=== PATIENT | female | born 1980 | race Caucasian/White ===

== ENCOUNTER 2020-11-29 11:06 | Inpatient (IN) | payer BC ==
[~2020-11-29] VITALS: Ht 157.5 cm; Wt 56.7 kg
--- NOTE | 2020-11-29 11:15 | NUR ---
at bedside for MSE.
[2020-11-29] MEDS ORDERED: MORPHINE SULFATE 4 MG/1 ML DISP.SYRIN IV ONE ×2 (11:30→13:45)
[2020-11-29] MEDS ORDERED: PANTOPRAZOLE SODIUM 40 MG VIAL IV ONE (11:30)
[2020-11-29] MEDS ORDERED: ONDANSETRON 4 MG/2 ML VIAL IV ONE (11:30)
[2020-11-29 11:32] LABS: HEMATOCRIT 37.3 % (31.2-41.9); PLATELET COUNT (AUTO) 225 K/uL (179-408)
[2020-11-29 11:34] LABS: *BILIRUBIN,URIN NEGATIVE (NEGATIVE); *CLARITY,URINE CLEAR (CLEAR); *COLOR,URINE YELLOW (YELLOW); *KETONES,URINE 1+ (NEGATIVE); *URINE HCG, QUAL NEG (NEGATIVE); *UROBILINOGEN,URINE 0.2 E.U./dl (NORMAL); LEUKOCYTE ESTERASE ,URINE NEGATIVE (NEGATIVE); NITRITE, URINE NEGATIVE (NEGATIVE); UGLUCOSE NEGATIVE (NEGATIVE)
[2020-11-29 11:35] LABS: *BLOOD, URINE TRACE (NEGATIVE)
[2020-11-29 11:38] LABS: CREATININE 0.7 mg/dL (0.6-1.3)
[2020-11-29] MEDS ORDERED: PANTOPRAZOLE SODIUM 40 MG VIAL ONE (11:43)
[2020-11-29] MEDS ORDERED: ONDANSETRON 4 MG/2 ML VIAL ONE ×3 (11:43→21:42)
[2020-11-29] MEDS ORDERED: MORPHINE SULFATE 4 MG/1 ML DISP.SYRIN ONE ×3 (11:43→14:18)
[2020-11-29 11:44] LABS: BILIRUBIN,DIRECT 0.1 mg/dL (0.0-0.2); BILIRUBIN,TOTAL 0.5 mg/dL (0.2-1.0); TOTAL PROTEIN, SERUM 6.9 g/dL (6.4-8.2)
--- NOTE | 2020-11-29 12:46 | NUR ---
Pt signed consent for IV contrasted CT scan, placed in the chart.
[2020-11-29] MEDS ORDERED: IV NORMAL SALINE 250 ML IV ONE (12:52)
[2020-11-29] MEDS ORDERED: IOHEXOL 300MG/ML 100 ML INFUS..BTL ONE (12:52)
[2020-11-29] MEDS ORDERED: SWABABLE VALVE TRANSFER SET EA MC ONE (12:52)
--- NOTE | 2020-11-29 13:01 | NUR ---
Pt out of Er for CT scan.
--- NOTE | 2020-11-29 13:31 | NUR ---
Pt back from Ct, IV inflitarated in CT, HL removed and warm pack applied.
[2020-11-29] MEDS ORDERED: CEFTRIAXONE 1 G in IV DEXTROSE 5% 50 ML IV ONE (13:45)
[2020-11-29] MEDS ORDERED: METRONIDAZOLE 500 MG/NS 100ML 100 ML IV ONE ×2 (13:45→13:59)
--- NOTE | 2020-11-29 13:53 | NUR ---
ER spoke to Dr Solomon(surgeon). Pt placed on NPO, pt stated she has not eaten anything since last night.
[2020-11-29] MEDS ORDERED: CEFTRIAXONE /D5W 50ML IVPB **ER PYXIS IV ONE (13:59)
[2020-11-29 14:27] LABS: BACTERIA,URINE NONE SEEN /HPF (NONE SEEN); RBC,URINE NONE SEEN /HPF (0-3); WBC,URINE NONE SEEN /HPF (0-3)
[2020-11-29 14:28] LABS: SQUAMOUS EPITHELIAL CELL,UR FEW /HPF (NONE SEEN)
[2020-11-29] MEDS ORDERED: IV D5/ 0.9% NACL 1,000 ML IV PRN (15:15)
[2020-11-29] MEDS ORDERED: ACETAMINOPHEN 650 MG SUPP.RECT RC PRN (15:15)
[2020-11-29] MEDS ORDERED: ONDANSETRON 4 MG/2 ML VIAL IV PRN (15:15)
[2020-11-29] MEDS ORDERED: MORPHINE SULFATE 4 MG/1 ML DISP.SYRIN IV PRN (15:15)
[2020-11-29 16:18] VITALS: BP 110/62
--- NOTE | 2020-11-29 16:22 | NUR ---
40 year old female admitted to room 330 for abdominal pain .pt is axox4 orient the pt to room.call light with in reach md notified the admission orders
[2020-11-29] MEDS ORDERED: PIPERACILLIN SODIUM/TAZOBACTAM 3.375 G in IV DEXTROSE 5% 50 ML IV ONE (17:00)
[2020-11-29] MEDS ORDERED: BUPIVACAINE/EPI PF 0.25% 30 ML VIAL ONE ×2 (18:22→20:43)
--- NOTE | 2020-11-29 18:40 | NUR ---
pt went to or via bed for surgery
[2020-11-29] MEDS ORDERED: ROCURONIUM BROMIDE 50 MG/5 ML VIAL ONE (18:55)
[2020-11-29] MEDS ORDERED: FENTANYL CITRATE 100 MCG/2 ML AMPUL ONE (18:55)
[2020-11-29] MEDS ORDERED: SCOPOLAMINE PATCH 1 MG/72 HRS PATCH TD ONE (19:30)
[2020-11-29 20:30] VITALS: BP 106/61
--- NOTE | 2020-11-29 21:34 | NUR ---
pt received from recovery room via bed in stable condition.vs are stable call light with in reach
[2020-11-29] MEDS ORDERED: GLYCOPYRROLATE 0.2 MG/ML VIAL ONE (21:42)
[2020-11-29] MEDS ORDERED: LIDOCAINE-MPF 2% 5 ML VIAL ONE (21:42)
[2020-11-29] MEDS ORDERED: PROPOFOL 200 MG/20 ML BOTTLE ONE (21:42)
[2020-11-29] MEDS ORDERED: SUCCINYLCHOLINE CHLORIDE 200 MG/10 ML VIAL ONE (21:42)
[2020-11-29] MEDS ORDERED: NEOSTIGMINE METHYLSULFATE 10 MG/10 ML VIAL ONE (21:42)
[2020-11-29] MEDS ORDERED: ESMOLOL HCL 100 MG/10 ML VIAL IV ONE (21:42)
[2020-11-29] MEDS ORDERED: DEXAMETHASONE SOD PHOSPHATE 4 MG INJ ONE (21:42)
[2020-11-29] MEDS ORDERED: KETOROLAC TROMETHAMINE 30 MG INJ ONE (21:42)
[2020-11-30] MEDS ORDERED: PIPERACILLIN SODIUM/TAZOBACTAM 3.375 G in IV DEXTROSE 5% 100 ML IV SCH (01:00)
[2020-11-30 04:25] VITALS: BP 98/52
[2020-11-30 06:36] LABS: HEMATOCRIT 33.4 % (31.2-41.9); MEAN CORPUSCULAR VOLUME 89.6 fL (75.5-95.3); PLATELET COUNT (AUTO) 217 K/uL (179-408)
[2020-11-30 06:59] LABS: BILIRUBIN,TOTAL 0.5 mg/dL (0.2-1.0); CREATININE 0.8 mg/dL (0.6-1.3); MAGNESIUM 1.9 mg/dL (1.8-2.4); PHOSPHOROUS 2.6 mg/dL (2.5-4.9); POTASSIUM 4.1 mmol/L (3.5-5.1); TOTAL PROTEIN, SERUM 6.1 g/dL (6.4-8.2)
--- NOTE | 2020-11-30 07:30 | NUR ---
Patient received in bed, alert and oriented x4. On RA with no SOB or difficulties breathing. No acute distress noted. Left AC IV patent running IVF at 90mL/h as ordered with no redness or swelling noted at this time. Plan is to be discharged this AM and patient expresses understanding. Call light and personal belongings within easy reach. Will continue to monitor.
[2020-11-30] MEDS ORDERED: CEPH500C2 PO (08:37)
[2020-11-30] MEDS ORDERED: HYDR-4209 PO (08:37)
[2020-11-30] MEDS ORDERED: PANTOPRAZOLE SODIUM 40 MG VIAL IV SCH (09:00)
--- NOTE | 2020-11-30 09:20 | NUR ---
at bedside. Patient expressed understanding regarding picking up new medications at the pharmacy. Patient discharged in satisfactory condition with all her personal belongings.
== END 2020-11-30 09:20 | disposition home or self-care (01) | DRG 343 ==
LOC: ER 11:06 → MEDSURG3 15:41
PROVIDERS: ADMIT Internal Medicine; ATTEND Internal Medicine
PROC: 0DTJ4ZZ Resection of Appendix, Percutaneous Endoscopic Approach (ICD-10-PCS; principal; 2020-11-29)
DX: K35.30 Acute appendicitis with localized peritonitis, without perforation or gangrene (principal); E03.9 Hypothyroidism, unspecified; Z20.822 Contact with and (suspected) exposure to COVID-19; R73.9 Hyperglycemia, unspecified; R16.0 Hepatomegaly, not elsewhere classified; D72.829 Elevated white blood cell count, unspecified
CPT/HCPCS: 36415; 71045; 83690; 83735; 84100; 84443; 84703; 85025; 93005; A4663; C9113; G0378; J0330; J0696; J1100; J1885; J2270; J2405; J2543; J3010; J3490; J7030; J7042; J7050; J7060; Q9967